=== PATIENT | female | born 1945 | race Caucasian/White ===

== ENCOUNTER 2021-08-21 19:02 | Inpatient (IN) | payer MEDICARE, BC ==
[~2021-08-21] VITALS: Ht 157.5 cm; Wt 83.9 kg
[2021-08-21] MEDS: POTASSIUM CL. PREMIX PERIPHER. 50 ML IV SCH ×3 (00:30→23:30)
--- NOTE | 2021-08-21 19:12 | NUR ---
SHIRAA RA88 FROM HOME C/O COUGH/SOB/FEELING WEEK FOR FEW DAYS, AND DIZZINESS X LAST NIGHT. AAOX4, BREATHING EVEN AND UNLABORED. ON MONITOR, TACHYCARDIC PULSE 102. WILL CONTINUE TO MONITOR.
--- NOTE | 2021-08-21 20:11 | NUR ---
COVID ANTIGEN AND PCR OBTAINED AND SENT TO LAB
[2021-08-21 20:22] LABS: CALCIUM, SERUM 8.8 mg/dL (8.5-10.1); CARBON DIOXIDE 22 mmol/L (21-32); CHLORIDE 103 mmol/L (98-107); CREATININE 1.3 mg/dL (0.6-1.3); GLUCOSE 169 mg/dL (74-106); SODIUM SERUM 141 mmol/L (136-145); UREA NITROGEN, BLOOD 23 mg/dL (7-18)
[2021-08-21 20:23] LABS: BASOPHILS % (AUTO) 0.1 % (0.0-2.0); EOSINOPHILS % (AUTO) 0.1 % (0.0-6.0); HEMATOCRIT 43 % (33-45); HEMOGLOBIN 14.4 g/dL (11.5-14.8); LYMPHOCYTES # (AUTO) 2.2 K/uL (0.8-4.8); LYMPHOCYTES % (AUTO) 14.2 % (20.0-44.0); MEAN CORPUSCULAR HGB CONC 34 g/dl (31.0-36.0); MEAN CORPUSCULAR VOLUME 92 fL (82-100); MONOCYTES # (AUTO) 1.1 K/uL (0.1-1.30); MONOCYTES % (AUTO) 7.2 % (2.0-12.0); NEUTROPHILS # (AUTO) 12.3 K/uL (1.8-8.9); NEUTROPHILS % (AUTO) 78.4 % (43.0-81.0); PLATELET COUNT (AUTO) 145 K/uL (150-450); POTASSIUM 2.8 mmol/L (3.5-5.1); RED BLOOD CELL COUNT(AUTO) 4.62 MIL/uL (4.0-5.2); WHITE BLOOD COUNT (AUTO) 15.6 K/uL (4.3-11.0)
[2021-08-21 20:33] LABS: ALANINE AMINOTRANSFERASE 20 U/L (12-78); ALBUMIN 3.3 g/dL (3.4-5.0); ALKALINE PHOSPHATASE 68 U/L (46-116); ASPARTATE AMINOTRANSFERASE 15 U/L (15-37); BILIRUBIN,DIRECT 0.3 mg/dL (0.0-0.2); BILIRUBIN,TOTAL 0.9 mg/dL (0.2-1.0); TOTAL PROTEIN, SERUM 7.1 g/dL (6.4-8.2)
[2021-08-21] MEDS ORDERED: PIPERACILLIN /TAZOBACTAM 3.375 G in IV D5W 50 ML IV ONE (21:30)
[2021-08-21] MEDS ORDERED: IV NS 0.9% 1,000 ML BAG IV ONE (21:30)
[2021-08-21] MEDS ORDERED: ASPIRIN 81 MG TAB.CHEW PO ONE (21:30)
[2021-08-21] MEDS ORDERED: ASPIRIN 81 MG TAB.CHEW ONE (21:50)
[2021-08-21] MEDS ORDERED: PIPERACILLIN /TAZOBACTAM 3.375 G VIAL IV ONE (21:50)
[2021-08-21] MEDS ORDERED: POTASSIUM CL. PREMIX PERIPHER. 150 ML ONE (21:50)
[2021-08-21] MEDS ORDERED: CT SWABBABLE VALVE TRANS SET 1 EA INFUS.SET MC ONE (21:56)
[2021-08-21] MEDS ORDERED: IOHEXOL-350 100 ML VIAL IV ONE (21:56)
[2021-08-21] MEDS ORDERED: IV NS 0.9% 250 ML IV ONE (21:56)
--- NOTE | 2021-08-21 22:03 | NUR ---
AFEBRILE ORAL TEMP 98.6F. PLS DISREGARD VS @ 1907 IN INTERVENTIONS - ERROR.
--- NOTE | 2021-08-21 22:09 | NUR ---
PT RETURNED TO ER BED [address]
--- NOTE | 2021-08-21 22:11 | NUR ---
BED 105
--- NOTE | 2021-08-21 22:45 | NUR ---
REPORT GIVEN TO MASSIEL ROJAS FOR BLAISE
--- NOTE | 2021-08-21 23:02 | NUR ---
spoke with edin, er charge nurse requesting for higher leve of care. cta faxed
--- NOTE | 2021-08-21 23:09 | NUR ---
RFA #20G S/L; PATNENT AND INTACT. MENTAL HEALTH THERAPIST AT PT'S BEDSIDE FOR BLOOD DRAW.
--- NOTE | 2021-08-21 23:10 | NUR ---
MAXIMILIANO CALLED BACK FROM [facility], UNABLE TO ACCEPT PT.
--- NOTE | 2021-08-21 23:17 | NUR ---
CALLED [facility], [place], [place]. UNABLE TO TAKE PT D/T ALL HOSPITAL IS AT [facility]AC[facility].
--- NOTE | 2021-08-21 23:24 | NUR ---
CALLED [facility], SPOKE WITH BRIDGETTE REQUESTING FOR HIGHER LEVEL OF CARE TRANSFER. NO AVAILABLE BED TONIGHT
--- NOTE | 2021-08-21 23:27 | NUR ---
CALLED [facility] FOR HIGHER LEVEL OF CARE TRANSFER. HOSPITAL IS AT CAPACITY AND ON DIVERSION PER JANINA.
[2021-08-21] MEDS ORDERED: HEPARIN SODIUM, PORCINE 5000 UNITS/1 ML VIAL ONE (23:28)
[2021-08-21] MEDS ORDERED: HEPARIN INFUSION/D5W 500 ML IV ONE ×2 (23:28→23:30)
[2021-08-21] MEDS ORDERED: HEPARIN INFUSION/D5W 500 ML IV PRN (23:30)
[2021-08-21] MEDS ORDERED: HEPARIN SODIUM, PORCINE 5000 UNITS/1 ML VIAL IV ONE (23:30)
--- NOTE | 2021-08-21 23:41 | NUR ---
CALLED [facility] FOR HIGHER LEVEL OF CARE. HOSPITAL IS AT CAPAC[facility]
[2021-08-22] VITALS (24 sets, daily range): BP systolic 98–153; BP diastolic 27–97
[2021-08-22] MEDS ORDERED: HEPARIN SODIUM, PORCINE 5000 UNITS/1 ML VIAL ONE (00:12)
--- NOTE | 2021-08-22 00:30 | NUR ---
PT RECIEVED HEPARIN BOULS 7200 UNITS PER ER MD ZAPATA ORDER VIA 20G RF. HEPARIN DRIP INITIATED VIA 20G RF AT 1450 UNITS/HR (18UNITS/KG/HR) PER HEPERAIN PROTOCOL. PTT WITHIN RANGE AT 26.2. NO S/S OF BLEEDING. PT ON LOCAL OPERATOR AND PULSE OX AND ALL V/S WITHIN NORMAL RANGE. REPEAT PTT ORDER PLACED FOR 0630 PER PROTOCOL. PT BREATHING EVEN AND UNLABORED AND CALL LIGHT WITHIN REACH.
--- NOTE | 2021-08-22 03:33 | NUR ---
PT SLEEPING COMOFORTABLY EASILY AROUSABLE. PT TOLERATING HEPARIN INFUSION WELL. BREATHING EVEN AND UNLABORED PT REMAINS ON MONITOR AND ALL V/S STABLE. CALL LIGHT WITHIN REACH AND ALL PATIENT NEEDS MET.
--- NOTE | 2021-08-22 06:56 | NUR ---
LAB AT BEDSIDE FOR REPEAT PTT
[2021-08-22 07:15] LABS: BASOPHILS # (AUTO) 0.1 K/uL (0.0-0.2); BASOPHILS % (AUTO) 0.4 % (0.0-2.0); EOSINOPHILS % (AUTO) 0.1 % (0.0-6.0); HEMATOCRIT 44 % (33-45); HEMOGLOBIN 14.7 g/dL (11.5-14.8); LYMPHOCYTES # (AUTO) 4.1 K/uL (0.8-4.8); LYMPHOCYTES % (AUTO) 26.2 % (20.0-44.0); MEAN CORPUSCULAR HGB CONC 34 g/dl (31.0-36.0); MEAN CORPUSCULAR VOLUME 93 fL (82-100); MONOCYTES # (AUTO) 1.5 K/uL (0.1-1.30); NEUTROPHILS # (AUTO) 9.8 K/uL (1.8-8.9); NEUTROPHILS % (AUTO) 63.3 % (43.0-81.0); PLATELET COUNT (AUTO) 139 K/uL (150-450); RED BLOOD CELL COUNT(AUTO) 4.71 MIL/uL (4.0-5.2); WHITE BLOOD COUNT (AUTO) 15.6 K/uL (4.3-11.0)
--- NOTE | 2021-08-22 07:16 | NUR ---
CALLED [facility] TRANSFER SPOKE WITH RITO. PT IS STILL AT [facility].
--- NOTE | 2021-08-22 07:24 | NUR ---
REPORT GIVEN TO MARLA BUSTAMANTE FOR BLAISE
--- NOTE | 2021-08-22 07:32 | NUR ---
RECEIVED REPORT FROM MASSIEL FERRARO FOR BLAISE. PT ASLEEP ON BED EASILY AROUSABLE, NOT IN RESPIRATORY DISTRESS, V/S STABLE, KEPT RESTED AND COMFORTABLE. WILL CONTINUE TO MONITOR.
--- NOTE | 2021-08-22 08:37 | NUR ---
PER STOP HEPARIN FOR 1 HR AND RE DRAW PTT.
[2021-08-22 09:08] LABS: BILIRUBIN,TOTAL 0.6 mg/dL (0.2-1.0); CALCIUM, SERUM 8.5 mg/dL (8.5-10.1); CREATININE 1.1 mg/dL (0.6-1.3); MAGNESIUM 2.5 mg/dL (1.8-2.4); PHOSPHORUS 4.1 mg/dL (2.5-4.9); POTASSIUM 3.2 mmol/L (3.5-5.1); TOTAL PROTEIN, SERUM 6.5 g/dL (6.4-8.2)
--- NOTE | 2021-08-22 09:16 | NUR ---
PAGED EPIC PER DR. ARGUETA
--- NOTE | 2021-08-22 09:50 | NUR ---
REPORT GIVEN TO MASSIEL ADAMS FOR BLAISE.
[2021-08-22] MEDS ORDERED: ONDANSETRON HCL/PF 4 MG/2 ML VIAL IVP PRN (10:30)
[2021-08-22] MEDS ORDERED: MAGNESIUM HYDROXIDE 30 ML UDC PO PRN (10:30)
[2021-08-22] MEDS ORDERED: MAG HYDROX/AL HYDROX/SIMETH 30 ML UDC PO PRN (10:30)
[2021-08-22] MEDS ORDERED: ACETAMINOPHEN 325 MG TABLET PO PRN (10:30)
[2021-08-22] MEDS ORDERED: Z GUARD REMEDY 4 OZ OINT TP PRN (10:30)
--- NOTE | 2021-08-22 10:30 | NUR ---
REPORT GIVEN TO MASSIEL SHARPE FOR BLAISE.
[2021-08-22] MEDS ORDERED: DEXAMETHASONE SOD PHOSPHATE 4 MG/ML VIAL ONE (10:47)
[2021-08-22] MEDS: DEXAMETHASONE SOD PHOSPHATE 10 MG/ML VIAL IV SCH (10:48)
--- NOTE | 2021-08-22 11:00 | NUR ---
RN NOTES PATIENT ADMITTED FROM ER A/O X3, NO ACUTE RESPIRATORY DISTRESS, VSS, STARTED HEPARIN DRIP 1200 ON RIGHT AC AREA INTACT. SKIN ASSESSMENT DONE INTACT. PATIENT USING BEDSIDE COMMODE. WILL FOLLOW UP.
[2021-08-22] MEDS: HEPARIN INFUSION/D5W 500 ML IV PRN ×2 (12:11→22:24)
[2021-08-22] MEDS: PIPERACILLIN /TAZOBACTAM 3.375 G in IV D5W 100 ML IV SCH ×2 (12:58→19:12)
[2021-08-22] MEDS ORDERED: LOSA1TAB36 PO (13:22)
[2021-08-22] MEDS ORDERED: ATOR20TA PO (13:22)
[2021-08-22] MEDS ORDERED: MEMA10TA PO (13:22)
[2021-08-22] MEDS ORDERED: METO-357 PO (13:22)
[2021-08-22] MEDS ORDERED: IV NS 0.9% 250 ML IV PRN (13:30)
--- NOTE | 2021-08-22 19:00 | NUR ---
RN NOTES PATIENT STABLE REFUSED PAIN, INFUSING HEPARIN @1200 UNITS INTACT. PATIENT TOLERATED DINNER 50% SELF, WAITING PTT RESULT. PATIENT NEED MINIMAL ASSIST TO BESDSIDE COMMODE USE. ENDORSED ONCOMING NURSE FOLLOW PLAN OF CARE.
[2021-08-23] VITALS (34 sets, daily range): BP systolic 100–178; BP diastolic 44–111
[2021-08-23] MEDS ORDERED: PIPERACILLIN /TAZOBACTAM 3.375 G VIAL IV ONE (03:36)
[2021-08-23] MEDS: PIPERACILLIN /TAZOBACTAM 3.375 G in IV D5W 100 ML IV SCH (03:39)
--- NOTE | 2021-08-23 03:43 | NUR ---
ICU/MANAGER REPORTING 0300 DOSE OF ZOSYN IVPB WASN'T IN MEDICATION BOX. NOTIFED CHARGE NURSE WHO THEN TOOK OUT THIS FROM [facility].
[2021-08-23 05:06] LABS: BASOPHILS % (AUTO) 0.1 % (0.0-2.0); HEMATOCRIT 40 % (33-45); HEMOGLOBIN 13.5 g/dL (11.5-14.8); LYMPHOCYTES # (AUTO) 2.4 K/uL (0.8-4.8); LYMPHOCYTES % (AUTO) 16.5 % (20.0-44.0); MEAN CORPUSCULAR HGB CONC 33 g/dl (31.0-36.0); MEAN CORPUSCULAR VOLUME 93 fL (82-100); MONOCYTES # (AUTO) 1.1 K/uL (0.1-1.30); MONOCYTES % (AUTO) 7.8 % (2.0-12.0); NEUTROPHILS # (AUTO) 11.1 K/uL (1.8-8.9); NEUTROPHILS % (AUTO) 75.6 % (43.0-81.0); PLATELET COUNT (AUTO) 186 K/uL (150-450); RED BLOOD CELL COUNT(AUTO) 4.34 MIL/uL (4.0-5.2); WHITE BLOOD COUNT (AUTO) 14.7 K/uL (4.3-11.0)
[2021-08-23 05:26] LABS: ALANINE AMINOTRANSFERASE 18 U/L (12-78); ALBUMIN 2.8 g/dL (3.4-5.0); ALKALINE PHOSPHATASE 61 U/L (46-116); ASPARTATE AMINOTRANSFERASE 17 U/L (15-37); BILIRUBIN,DIRECT 0.2 mg/dL (0.0-0.2); BILIRUBIN,TOTAL 0.4 mg/dL (0.2-1.0); CALCIUM, SERUM 8.4 mg/dL (8.5-10.1); CARBON DIOXIDE 24 mmol/L (21-32); CHLORIDE 103 mmol/L (98-107); CREATININE 0.9 mg/dL (0.6-1.3); GLUCOSE 132 mg/dL (74-106); MAGNESIUM 2.5 mg/dL (1.8-2.4); PHOSPHORUS 3.1 mg/dL (2.5-4.9); POTASSIUM 3.3 mmol/L (3.5-5.1); SODIUM SERUM 137 mmol/L (136-145); TOTAL PROTEIN, SERUM 6.4 g/dL (6.4-8.2); UREA NITROGEN, BLOOD 22 mg/dL (7-18)
--- NOTE | 2021-08-23 05:55 | NUR ---
ICU/SADDLE MAKER PTT-105, HEPARIN IS OFF FOR 1 HOUR THEN REDUCE THE RATE BY 250ML TO A NEW RATE OF 950ML @0700, AND A NEW PTT AT NOON TODAY 08/23/21. CHARGE NURSE PUT NEW ORDERS TO REFLECT THESE CHANGES.
--- NOTE | 2021-08-23 06:56 | NUR ---
ICU/DIRECTOR BANKING HEPARIN RESTATED AT NEW RATE. NOON PTT.
[2021-08-23] MEDS: DEXAMETHASONE SOD PHOSPHATE 10 MG/ML VIAL IV SCH (09:41)
--- NOTE | 2021-08-23 09:45 | NUR ---
RIGHT FEMORAL/POPLITEAL DVT. DR. TAY MADE AWARE. PATIENT REMAINS ON HEPARIN GTT ONGOING AT 950 U/HR PER NON ACS PROTOCOL. NO SIGNS OF BLEEDING NOTED. WILL ADJUST ACCORDINGLY.
[2021-08-23] MEDS ORDERED: POTASSIUM CHLORIDE 20 MEQ TAB.PRT.SR PO ONE (10:00)
[2021-08-23] MEDS: FAMOTIDINE (20 MG) 20 MG TABLET PO SCH (12:20)
[2021-08-23] MEDS: AZITHROMYCIN 250 MG TABLET PO SCH (12:20)
[2021-08-23] MEDS: HEPARIN INFUSION/D5W 500 ML IV PRN (23:33)
[2021-08-24] VITALS (13 sets, daily range): BP systolic 114–168; BP diastolic 68–119
[2021-08-24 05:20] LABS: HEMATOCRIT 38 % (33-45); HEMOGLOBIN 12.8 g/dL (11.5-14.8); LYMPHOCYTES # (AUTO) 2.2 K/uL (0.8-4.8); LYMPHOCYTES % (AUTO) 13.9 % (20.0-44.0); MEAN CORPUSCULAR HGB CONC 34 g/dl (31.0-36.0); MEAN CORPUSCULAR VOLUME 92 fL (82-100); MONOCYTES % (AUTO) 6.6 % (2.0-12.0); NEUTROPHILS # (AUTO) 12.5 K/uL (1.8-8.9); NEUTROPHILS % (AUTO) 79.5 % (43.0-81.0); PLATELET COUNT (AUTO) 210 K/uL (150-450); RED BLOOD CELL COUNT(AUTO) 4.09 MIL/uL (4.0-5.2); WHITE BLOOD COUNT (AUTO) 15.8 K/uL (4.3-11.0)
[2021-08-24 05:35] LABS: CALCIUM, SERUM 8.6 mg/dL (8.5-10.1); CARBON DIOXIDE 30 mmol/L (21-32); CHLORIDE 106 mmol/L (98-107); CREATININE 0.9 mg/dL (0.6-1.3); GLUCOSE 113 mg/dL (74-106); POTASSIUM 3.5 mmol/L (3.5-5.1); SODIUM SERUM 141 mmol/L (136-145); UREA NITROGEN, BLOOD 22 mg/dL (7-18)
--- NOTE | 2021-08-24 05:52 | NUR ---
PTT 65.9 PER PROTOCOL NO CHANGES WILL ORDER PTT AFTER 24H
--- NOTE | 2021-08-24 07:05 | NUR ---
RN NOTES RECEIVED PT ON BED, A/Ox1, FORGETFUL , ON TELE SR HR IN 70'S , ON HEPARIN DRIP AT 950 U/HR , IV SITES CLEAN ,DRY AND INTACT, SR UP x3, CALL LIGHT WITHIN EASY REACH, BED LOCKED AND IN LOWEST POSITION, CONTINUE TO MONITOR .
[2021-08-24] MEDS: DEXAMETHASONE SOD PHOSPHATE 10 MG/ML VIAL IV SCH (08:10)
[2021-08-24] MEDS: FAMOTIDINE (20 MG) 20 MG TABLET PO SCH (08:10)
--- NOTE | 2021-08-24 09:15 | NUR ---
RN NOTES PT TRANSFERRED TO TELE FLOOR VIA ACLS PROTOCOL IN STABLE CONDITION, REPORT GIVEN TO BALDOMERO RANKIN FOR CONTINUITY OF CARE .
--- NOTE | 2021-08-24 09:20 | NUR ---
RN NOTE RECEIVE REPORT FROM ICU NURSE. PATIENT IN STABLE CONDITION AT TIME OF TRANSPORT. WILL CONTINUE TO MONITOR
[2021-08-24] MEDS: AZITHROMYCIN 250 MG TABLET PO SCH (10:09)
--- NOTE | 2021-08-24 13:29 | NUR ---
RN NOTE PATIENT PULL OUT RIGHT AC IV WHEN GETTING OUT OF BED. PRESSURE DRESSING WAS PLACED.
--- NOTE | 2021-08-24 19:03 | NUR ---
RN CLOSING NOTE PATIENT REMAIN IN STABLE CONDITION WITH NO SIGN OF DISTRESS THROUGH OUT SHIFT. PATIENT WAS TRANSFER FROM ICU. ON 2L/MIN VIA NC WITH O2 SAT OF 96%. PATIENT ABLE TO AMBULATE TO RESTROOM. RIGHT AC IV 20G WAS PULL OUT WHILE PATIENT WAS TRYING TO GET OUT OF BED TO USE THE RESTROOM. PATIENT CURRENTLY HAVE HEPARIN DRIP RUNNING AT 950U/HR. APTT WITHIN THERAPEUTIC RANG OF 65.9. NEXT BLOOD DRAW FOR APTT 08/25 @ 0500. NO IVC FILTER PER DR. PROCTOR. PATIENT RESTING COMFORTABLY IN BED. PROPER ISOLATION PRECAUTIOIN IN PLACE. ALL SAFETY MEASURE IN PLACE. BED ON LOWEST POSITION WITH HOB ELEVATED AND 3 SIDE RAIL UP. CALL LIGHT WITHIN REACH. WILL CONTINUE TO MONITOR AND ENDORSE TO ON COMING NURSE.
--- NOTE | 2021-08-24 21:20 | NUR ---
ENDORSED PATIENT TO ESTEPHANIA RANKIN FOR CONTINUATION OF CARE, PT IN BED AWARE, A/O WITH INTERMITTENT CONFUSION, HX DEMENTIA, PT ON HEPARIN DRIP AT 950U/H, WILL HAVE PTT IN AM AT 0500.
[2021-08-25] VITALS: BP 149/90
[2021-08-25] MEDS: HEPARIN INFUSION/D5W 500 ML IV PRN (03:07)
[2021-08-25 04:00] VITALS: BP 146/88
--- NOTE | 2021-08-25 06:40 | NUR ---
RN CLOSING NOTES: PATIENT IN BED ALERT, ORIENTED X2, MALTESE SPEAKING AND VERBALLY RESPONSIVE. O2 2L VIA N/C, O2 SAT 100% AND PT TOLERATED WELL. NO SOB, NO CHEST CONGESTION, BREATHING EVEN AND UNLABORED. PATIENT PULLED OUT THE IV LINE. INSERTED NEW SALINE LOCK ON RT FOREARM #20G INTACT AND PATENT. NO S/S OF INFILTRATIONS. NO BLEEDING NOTED. APPLIED BILATERAL SOFT RESTRAINTS DUE TO PT CONSTANTLY REMOVING SALINE LOCK, TRYING TO GET UP FROM THE BED UNATTENDED. RANCHO ALDRIDGE AWARE. NO C/O PAIN OR DISCOMFORT. NO ACUTE DISTRESS. ALL SAFETY MEASURE IN PLACE. BED SIDE RAILS ARE UP X3, BED IN LOW POSITION AND LOCKED. WILL ENDORSE TO MORNING SHIFT NURSE.
[2021-08-25 07:16] LABS: BASOPHILS % (AUTO) 0.2 % (0.0-2.0); HEMATOCRIT 37 % (33-45); HEMOGLOBIN 12.5 g/dL (11.5-14.8); LYMPHOCYTES # (AUTO) 2.3 K/uL (0.8-4.8); LYMPHOCYTES % (AUTO) 18.2 % (20.0-44.0); MEAN CORPUSCULAR HGB CONC 34 g/dl (31.0-36.0); MEAN CORPUSCULAR VOLUME 93 fL (82-100); MONOCYTES # (AUTO) 0.9 K/uL (0.1-1.30); NEUTROPHILS # (AUTO) 9.4 K/uL (1.8-8.9); NEUTROPHILS % (AUTO) 74.6 % (43.0-81.0); PLATELET COUNT (AUTO) 223 K/uL (150-450); RED BLOOD CELL COUNT(AUTO) 4.04 MIL/uL (4.0-5.2); WHITE BLOOD COUNT (AUTO) 12.6 K/uL (4.3-11.0)
--- NOTE | 2021-08-25 07:30 | NUR ---
RN OPENING NOTES RECEIVED PATIENT IN BED, AWAKE ALERT, NO COMPLAINT OF PAIN NOTED, NO SOB NOTES. ON HEPARIN DRIP RUNNING AT RFA G20, IV SITE PATENT AND INTACT, ON BILATERAL WRIST RESTRAINT ORDERED.
[2021-08-25 07:44] LABS: CREATININE 0.8 mg/dL (0.6-1.3); POTASSIUM 3.9 mmol/L (3.5-5.1)
[2021-08-25 08:00] VITALS: BP 138/86
--- NOTE | 2021-08-25 08:00 | NUR ---
CHARGE NURSE NOTE PTT 27.7. NOTED PER PROTOCOL, WILL GIVE BOLUS 6400 UNITS AND INCREASE DRIP BY 4UNITS/KG/H = 300 UNITS/ HOUR
--- NOTE | 2021-08-25 08:16 | NUR ---
RN NOTES; PT RHYTHM SVT AT 7:49AM FOR 14 SEC. PT CONVERTED BACK TO SR AFTER. MD NOTIFIED AND AWARE. NO NEW ORDERS AT THIS TIME. PT ON HEP. DRIP. WILL CONTINUE TO MONITOR.
[2021-08-25] MEDS ORDERED: HEPARIN SODIUM, PORCINE 5000 UNITS/1 ML VIAL IV ONE (08:30)
[2021-08-25] MEDS: FAMOTIDINE (20 MG) 20 MG TABLET PO SCH (08:34)
[2021-08-25] MEDS: DEXAMETHASONE SOD PHOSPHATE 10 MG/ML VIAL IV SCH (08:34)
[2021-08-25] MEDS: AZITHROMYCIN 250 MG TABLET PO SCH (10:14)
[2021-08-25] MEDS: APIXABAN 5 MG TABLET PO SCH ×2 (10:14→16:16)
[2021-08-25 12:00] VITALS: BP 108/63
[2021-08-25 16:00] VITALS: BP 117/64
--- NOTE | 2021-08-25 17:13 | NUR ---
RN NOTES SPOKE WITH PATIENT'S SISTER TO DISCUSS INFERIOR VENA CAVA FILTER PROCEDURE FOR PATIENT AND PER SISTER WILL TALK TO PRIMARY STUDENT NURSE FIRST.
--- NOTE | 2021-08-25 18:33 | NUR ---
RN CLOSING NOTES PATIENT AWAKE IN BED, O2 @ 3LPM VIA NC WITH O2SAT OF 96%, NO SOB NOT IN DISTRESS. PATIENT IS TO HAVE PROCEDURE DONE IN AM, CONSENT SIGNED. WILL ENDORSE TO LATHE SETUP OPERATOR TO DO SURGICAL CHECKLIST, PATIENT TO BE NPO POST MIDNIGHT, IVF NS 1OOO TO START AT 75CC/HR. HOLD AM DOSE OF ELIQUIS PER MD AND RESUME AFTER. DUE MEDS GIVEN TOLERATED WELL. SAFETY MEASURES GIVEN. BED TO LOWEST POSITION AND LOCKED, SIDE RAILS UP X 3. CALL LIGHT WITHIN REACH. NO SIGNIFICANT CHANGES ON PATIENT STATUS ON SHIFT. WILL ENDORSE TO LATHE SETUP OPERATOR. PATIENT IN STABLE CONDITION.
[2021-08-25] MEDS ORDERED: ANESTHESIA TRAY IN PYXIS 1 EA TRAY MC ONE (18:58)
[2021-08-25 20:00] VITALS: BP 160/75
--- NOTE | 2021-08-25 20:00 | NUR ---
CURATOR OF MANUSCRIPTS NOTE PT IN BED AWAKE. NO DISTRESS OR DISCOMFORT NOTED. DENIES PAIN. ON 2L VIA N/C O2 SAT 97%. ON TELE SR/SB HR 57. PT WITH BILATERAL SOFT WRIST RESTRAINTS. RFA #20 G INTACT AND PATENT. REPOSITION HER Q2H, KEPT HER DRY AND CLEAN. ALL NEEDS ATTENDED. VSS. CONTINUE TO MONITOR HER.
--- NOTE | 2021-08-25 20:56 | NUR ---
CEMENT MIXER DRIVER NOTE PHARMACY INFORMED ME TO CONTINUE WITH SHE, EXPLAINED TO PHARMACY THAT PT IS GOING FOR IVC FILTER PROCEDURE IN THE MORNING. PHARMACY WANTS ME TO CHECK WITH DR MA. CALLED DR DR MA WHO WAS ALSO INFORMED BY DR WEBSTER PROCEDURE IS CANCELLED AND REVERIFY WITH DR WEBSTER. CALLED DARIN WHO EXPLAINED THAT DR DE LA TORRE EXPLAINED HIM THAT PROCEDURE IS ON HOLD OFF FOR NOW PT WISHES TO SPEAK TO HER OWN HIGH ENERGY FORMING EQUIPMENT OPERATOR. OK TO GIVE BLOOD THINNER TONIGHT AND HOLD ON AM DOSE. PER DR WEBSTER.
[2021-08-25] MEDS ORDERED: APIXABAN 5 MG TABLET PO ONE (21:00)
--- NOTE | 2021-08-25 21:07 | NUR ---
ARMOR RECONNAISSANCE VEHICLE CREWMAN NOTE LAKISHA FROM PHARMACY CALLED BACK AND WHO HAS SPOKEN WITH DR MA. PER DR MA HOLD BLOOD THINNER DOSE FOR TONIGHT. RECHECK IN THE MORNING.
[2021-08-26] VITALS: BP 149/68
[2021-08-26] MEDS ORDERED: IV NS 0.9% 1,000 ML IV PRN
[2021-08-26 03:53] LABS: BASOPHILS % (AUTO) 0.2 % (0.0-2.0); EOSINOPHILS % (AUTO) 0.1 % (0.0-6.0); HEMATOCRIT 37 % (33-45); HEMOGLOBIN 12.4 g/dL (11.5-14.8); LYMPHOCYTES # (AUTO) 2.6 K/uL (0.8-4.8); LYMPHOCYTES % (AUTO) 19.9 % (20.0-44.0); MEAN CORPUSCULAR HGB CONC 34 g/dl (31.0-36.0); MEAN CORPUSCULAR VOLUME 93 fL (82-100); MONOCYTES # (AUTO) 1.2 K/uL (0.1-1.30); MONOCYTES % (AUTO) 8.9 % (2.0-12.0); NEUTROPHILS # (AUTO) 9.2 K/uL (1.8-8.9); NEUTROPHILS % (AUTO) 70.9 % (43.0-81.0); PLATELET COUNT (AUTO) 231 K/uL (150-450); RED BLOOD CELL COUNT(AUTO) 3.98 MIL/uL (4.0-5.2)
[2021-08-26 04:00] VITALS: BP 152/89
[2021-08-26 04:05] LABS: CALCIUM, SERUM 8.3 mg/dL (8.5-10.1); CARBON DIOXIDE 31 mmol/L (21-32); CHLORIDE 106 mmol/L (98-107); CREATININE 0.8 mg/dL (0.6-1.3); GLUCOSE 97 mg/dL (74-106); POTASSIUM 4.1 mmol/L (3.5-5.1); SODIUM SERUM 142 mmol/L (136-145); UREA NITROGEN, BLOOD 25 mg/dL (7-18)
[2021-08-26 04:25] LABS: D-DIMER 4.55 mg/L(FEU (0.17-0.50)
--- NOTE | 2021-08-26 05:52 | NUR ---
DIRECTOR OF KIDS NOTE PRE OP CHECKLIST STARTED. PT REMAIN NPO SINCE MIDNIGHT.
[2021-08-26] MEDS ORDERED: IOHEXOL 240MG/ML 50 ML IV ONE (06:21)
[2021-08-26] MEDS ORDERED: LIDOCAINE 1% INJ 50 ML MDV IJ ONE (06:21)
--- NOTE | 2021-08-26 06:38 | NUR ---
SCREEN HANDLER NOTE INFORMED OR PT IS READY FOR PROCEDURE. CONSENT SIGNED AND PRE OP CHECK LIST COMPLETED. PT IN NO DISTRESS OR DISCOMFORT NOTED. NS @ 75 ML/HR INFUSING WELL WILL ENDORSE TO DAY SHIFT NURSE FOR CONTINUE TO CARE.
--- NOTE | 2021-08-26 07:34 | NUR ---
RN OPENING NOTES; RECEIVED REPORT FROM COLLECTOR OF INTERNAL REVENUE RN. PT STILL IN OR FOR PROCEDURE.
[2021-08-26 08:00] VITALS: BP 154/71
--- NOTE | 2021-08-26 08:25 | NUR ---
RN NOTES PATIENT CAME BACK FROM OR VIA GURNEY IN STABLE CONDITION. PATIENT ON O2 VIA NC @ 3LPM WITH O2 SAT OF 100%, RIGHT GROIN PROCEDURE SITE, NO BLEEDING, DRESSING DRY AND INTACT. V/S STABLE 143/63MMHG, HR 57, RR 19. PER OR DOCTOR END NPO AND RESUME PRIOR DIET, TO MONITOR RIGHT GROIN [id number] X 2HRS.
[2021-08-26] MEDS ORDERED: APIXABAN 5 MG TABLET PO SCH (09:00)
[2021-08-26] MEDS: FAMOTIDINE (20 MG) 20 MG TABLET PO SCH (09:01)
[2021-08-26] MEDS: DEXAMETHASONE SOD PHOSPHATE 10 MG/ML VIAL IV SCH (09:02)
[2021-08-26] MEDS: APIXABAN 5 MG TABLET PO SCH ×2 (09:05→16:37)
[2021-08-26] MEDS: AZITHROMYCIN 250 MG TABLET PO SCH (10:22)
[2021-08-26 12:00] VITALS: BP 141/63
[2021-08-26 16:00] VITALS: BP 151/83
--- NOTE | 2021-08-26 18:28 | NUR ---
RN CLOSING NOTES PATIENT AWAKE IN BED, ALERT VERBALLY RESPONSIVE. WITH O2 2 2LPM VIA NC WITH O2 SAT OF 98%. S/P IVC FILTER THIS AM WITH RIGHT GROIN SITE NO BLEEDING NOTED, DRESSING DRY. PATIENT ATE HER MEALS WITH GOD APPETITE TODAY. WILL ENDORSE TO NIGHT NURSE ON DUTY.
[2021-08-26 20:00] VITALS: BP 154/76
[2021-08-27] VITALS: BP 160/75
[2021-08-27 04:00] VITALS: BP 172/81
[2021-08-27 07:10] LABS: BASOPHILS % (AUTO) 0.1 % (0.0-2.0); EOSINOPHILS % (AUTO) 0.1 % (0.0-6.0); HEMATOCRIT 38 % (33-45); HEMOGLOBIN 12.9 g/dL (11.5-14.8); LYMPHOCYTES # (AUTO) 3.1 K/uL (0.8-4.8); LYMPHOCYTES % (AUTO) 22.7 % (20.0-44.0); MEAN CORPUSCULAR HGB CONC 34 g/dl (31.0-36.0); MEAN CORPUSCULAR VOLUME 92 fL (82-100); MONOCYTES # (AUTO) 1.1 K/uL (0.1-1.30); MONOCYTES % (AUTO) 8.4 % (2.0-12.0); NEUTROPHILS # (AUTO) 9.3 K/uL (1.8-8.9); NEUTROPHILS % (AUTO) 68.7 % (43.0-81.0); PLATELET COUNT (AUTO) 270 K/uL (150-450); RED BLOOD CELL COUNT(AUTO) 4.17 MIL/uL (4.0-5.2); WHITE BLOOD COUNT (AUTO) 13.6 K/uL (4.3-11.0)
--- NOTE | 2021-08-27 07:30 | NUR ---
RN NOTES RECEIVED PATIENT AWAKE IN BED, A/OX4, FARSI/ TURKS AND [place]ER SPEAKING, VERBALLY RESPONSIVE AND ABLE TO MAKE HER NEEDS KNOWN. PT ON NC 2L, NO S/SX OF SOB OR DISTRESS NOTED, S/P IVC FILTER NO BLEEDING NOTED, DRESSING CLEAN AND DRY. ALL SAFETY MEASURES IN PLACE, BED IN LOWEST POSITION AND LOCKED. SIDE RAILS UP X3, PLACE CALL LIGHT WITHIN REACH. WILL CONTINUE TO MONITOR.
[2021-08-27 07:43] LABS: CALCIUM, SERUM 8.3 mg/dL (8.5-10.1); CREATININE 0.8 mg/dL (0.6-1.3); POTASSIUM 3.9 mmol/L (3.5-5.1)
[2021-08-27 08:00] VITALS: BP 170/92
[2021-08-27] MEDS: FAMOTIDINE (20 MG) 20 MG TABLET PO SCH (09:01)
[2021-08-27] MEDS: DEXAMETHASONE SOD PHOSPHATE 10 MG/ML VIAL IV SCH (09:01)
[2021-08-27] MEDS: APIXABAN 5 MG TABLET PO SCH ×2 (09:05→16:02)
[2021-08-27] MEDS: AZITHROMYCIN 250 MG TABLET PO SCH (10:10)
[2021-08-27] MEDS ORDERED: APIX5TAB PO (10:12)
[2021-08-27] MEDS: ENSURE ENLIVE CHOC 237 ML CAN PO SCH ×2 (10:13→16:09)
[2021-08-27 12:00] VITALS: BP 152/74
--- NOTE | 2021-08-27 14:37 | NUR ---
RN NOTE PT COMPLAIN OF HEADACHE, ASSESS BP 148/61, PROVID TYLENOL, WILL CONTINUE TO ASSESS PT AND REPORT ANY CHANGES Addendum: 08/27/21 at 1444 by JOHNATHAN VOGEL RN PROVIDED PT JUICE, AND KIKI
[2021-08-27 16:00] VITALS: BP 154/76
[2021-08-27] MEDS ORDERED: HYDROCODONE/APAP 5/325MG TABLET PO PRN (16:00)
--- NOTE | 2021-08-27 16:00 | NUR ---
RN NOTES: pt still complain of headache and bach pain, called md wolfe, get the order of narco5/325 q6h prn, provide med to pt, will continue of care and assessment
[2021-08-27] MEDS ORDERED: APIXABAN 5 MG TABLET PO SCH (17:00)
--- NOTE | 2021-08-27 18:30 | NUR ---
RN NOTE CALLED [facility] AND GAVE REPORT TO JOURDAN.
--- NOTE | 2021-08-27 19:10 | NUR ---
RN NOTE PATIENT DISCHARGE AT 1910 WITH EMT IN STABLE CONDITION, A/OX4, BP 142/78, TEM 98.4, O2SAT %95, FARSI/ CZECH SPEAKING, VERBALLY RESPONSIVE AND ABLE TO MAKE HER NEEDS KNOWN. PT ON NC 2L, NO S/SX OF SOB OR DISTRESS NOTED, S/P IVC FILTER NO BLEEDING NOTED, DRESSING CLEAN AND DRY.
== END 2021-08-27 23:40 | DRG 177 ==
LOC: ER 19:03 → UNDOADMIN 22:19 → TELE1 22:19 → ICU 08-22 10:21 → TELE1 08-24 09:20
PROVIDERS: ADMIT Internal Medicine; ATTEND Internal Medicine
PROC: 06H03DZ Insertion of Intraluminal Device into Inferior Vena Cava, Percutaneous Approach (ICD-10-PCS; principal; 2021-08-26)
PROC: B51B1ZZ Fluoroscopy of Right Lower Extremity Veins using Low Osmolar Contrast (ICD-10-PCS; 2021-08-26)
DX: U07.1 COVID-19 (principal); I26.92 Saddle embolus of pulmonary artery without acute cor pulmonale; G93.41 Metabolic encephalopathy; J96.01 Acute respiratory failure with hypoxia; E43 Unspecified severe protein-calorie malnutrition; J12.82 Pneumonia due to coronavirus disease 2019; I21.A1 Myocardial infarction type 2; I82.413 Acute embolism and thrombosis of femoral vein, bilateral; E87.2 Acidosis; I82.431 Acute embolism and thrombosis of right popliteal vein; I82.411 Acute embolism and thrombosis of right femoral vein; F03.90 Unspecified dementia, unspecified severity, without behavioral disturbance, psychotic disturbance, mood disturbance, and anxiety; I10 Essential (primary) hypertension; E78.5 Hyperlipidemia, unspecified; E78.00 Pure hypercholesterolemia, unspecified; E87.6 Hypokalemia; I27.20 Pulmonary hypertension, unspecified; E88.09 Other disorders of plasma-protein metabolism, not elsewhere classified; Z95.828 Presence of other vascular implants and grafts; Z86.711 Personal history of pulmonary embolism
CPT/HCPCS: 36415; 71045-TC; 74018; 80048-TC; 80053-TC; 80076-TC; 83605-TC; 83735-TC; 83880; 84100-TC; 84484-TC; 85025-TC; 85378-TC; 85610-TC; 85730-TC; 87040-TC; 93307-TC; 93970-TC; 94799-TC; 97116-TC; 97530-TC; A6253; C1769; C1880; C1894; C9803; G0378; J0690; J1100; J1644; J2543; J2704; J3480; J3490; J7030; J7050; J7060; Q9966; Q9967; U0003